=== PATIENT | male | born 1975 | race Caucasian/White ===

== ENCOUNTER 2016-10-25 15:16 | Emergency (ER) | payer BC ==
--- NOTE | 2016-10-25 15:21 | EDPHY ---
ED Progress Note Narrative: 1520: Patient is alert and normally conversant and clearly has capacity to make decisions regarding his care. He was offered evaluation and treatment and medical screening exam but declined.
== END 2016-10-25 15:20 | disposition left against medical advice (07) ==
LOC: CED 15:16
DX: Z53.21 Procedure and treatment not carried out due to patient leaving prior to being seen by health care provider (principal)